=== PATIENT | female | born 1945 | race Caucasian/White ===

== ENCOUNTER 2022-07-01 15:26 | Emergency (ER) | payer MEDICARE, SELFPAY ==
--- NOTE | ~2022-07-01 | CT_ITS ---
EXAMINATION: CT ABDOMEN AND PELVIS WITHOUT CONTRAST CLINICAL INFORMATION: Left flank pain COMPARISON: None TECHNIQUE: Multidetector volumetric imaging was performed from the superior aspect of the liver through the pubic symphysis. Sagittal and coronal reformatted images were obtained on the technologist's workstation. This CT examination was performed using dose optimization techniques as appropriate, variously including the following: *Automated exposure control *Adjustment of mA and/or kV according to patient size (this includes techniques or standardized protocols for targeted exams where dose is matched to indication/reason for exam; i.e. extremities or head) *Use of iterative reconstruction technique DLP: 523 mGy-cm FINDINGS: LUNG BASES: The visualized lung bases are unremarkable. LIVER, GALLBLADDER, AND BILIARY TREE: No focal liver lesion. No biliary dilatation. Gallstone present. No obvious gallbladder wall thickening, or obvious pericholecystic inflammatory changes. PANCREAS: Unremarkable. No acute inflammatory changes. SPLEEN: Unremarkable. ADRENAL GLANDS: Unremarkable. KIDNEYS AND URETERS: Punctate calcification in the upper pole left kidney, could represent calyceal calculus versus vascular calcification. No renal calculi otherwise seen. No hydronephrosis. No radiodense ureteral calculi identified. There is mild bilateral perinephric stranding. BLADDER: Unremarkable. GASTROINTESTINAL TRACT: The stomach is nondistended limiting evaluation. No dilated small bowel loops. There is prominent sigmoid diverticulosis. There is wall thickening of the sigmoid colon without adjacent inflammatory changes. These findings could be related to lack of distention versus mild colitis/diverticulitis in the appropriate clinical circumstance. There are diverticula otherwise in the large colon. Small to moderate volume stool in the colon. Normal appendix. No significant free fluid is seen. ABDOMINAL WALL: No significant hernia is appreciated. LYMPH NODES: No lymphadenopathy seen in the abdomen or pelvis. VASCULAR: Extensive atherosclerotic vascular calcification. No aneurysmal dilatation of the aorta. PELVIC VISCERA: Within normal limits for CT. OSSEOUS STRUCTURES: Multilevel degenerative changes in the spine. No suspicious osseous abnormality. CT/CT abdomen pelvis wo IV con IMPRESSION: 1. No evidence of hydronephrosis. No radiopaque ureteral calculi. Punctate vascular calcification versus calyceal calcification in the upper pole left kidney. Mild bilateral perinephric stranding, nonspecific. Correlate with urinalysis. 2. Prominent sigmoid colon diverticulosis. There is wall thickening of the sigmoid colon, which could be related to lack of distention or could represent mild colitis/diverticulitis in the appropriate clinical circumstance. Please clinically correlate. 3. Cholelithiasis. No CT findings suggest obvious cholecystitis. Further evaluation ultrasound as clinically warranted. Fleischner guidelines were followed.
[2022-07-01 15:43] VITALS: BP 170/90; PULSE 82; O2SAT 96
[2022-07-01 15:52] VITALS: BP 185/81; PULSE 71; RESP 18; TEMP 36.9; O2SAT 96; BMI 30.2
--- NOTE | 2022-07-01 16:03 | ED.GENADULT ---
HPI - General Adult General Chief complaint: General Medical Stated complaint: LT FLANK PAIN X 4 DAYS Time Seen by Provider: 07/01/22 15:52 Source: patient History of Present Illness HPI narrative: patient complaining of severe pain left flank starting 4 days ago. No causative factors that she knows of. No slips falls or change in activity. No prior history of flank pain before. No definitive radiation to the abdomen. It is worse with movement. It is sharp. It is 7/10. No nausea vomiting diarrhea or constipation No urinary symptoms such is dysuria hematuria hesitancy or frequency. Family history of kidney disease and renal cancer but no history of kidney stones. No fevers chills No change to cough. She states she has chronic cough Related Data Previous Rx's Medication Instructions Recorded cyclobenzaprine 10 mg tablet 10 mg PO TID #20 tabs 07/01/22 ibuprofen 600 mg tablet 600 mg PO TID PRN pain #30 tabs 07/01/22 Allergies Allergy/AdvReac Type Severity Reaction Status Date / Time No Known Allergies Allergy Verified 07/01/22 16:01 Review of Systems Constitutional: Comments: no fevers or chills Cardiovascular: Comments: no chest pain Respiratory: Comments: no change to cough. She has a chronic cough. Gastrointestinal: Comments: No anterior abdominal pain. Positive left flank pain Genitourinary: Comments: no dysuria hesitancy or frequency. No hematuria Musculoskeletal: Comments: no midline back pain. No leg pain, calf tenderness, pedal edema Integumentary/Breasts: Comments: no rash Neurologic: Comments: no weakness numbness or paresthesias [facility] Past Medical History Medical History (Updated 07/01/22 @ 19:38 by Jung Ayon MD) Bursitis COPD (chronic obstructive pulmonary disease) Hypertension Surgical History Hx of tonsillectomy Social History Social History Alcohol intake: never Patient Tobacco Use Status: Current everyday Tobacco user Use of substances other than those prescribed or required for medical reasons: No Advance Directives: No Advance Directives Information Provided: No Physical Exam ED Vital Signs: Vital Signs - 24 hr 07/01/22 15:52 07/01/22 17:58 Temperature 98.5 F Pulse Rate 71 61 Respiratory Rate 18 20 Blood Pressure 185/81 H 191/64 H Pulse Oximetry 96 96 Oxygen Delivery Method Room Air Room Air BMI result Body Mass Index 30.2 Const Other: awake and alert in no acute distress Chest Other: tenderness to palpation left lateral lower ribs. No crepitus deformity or other abnormality noted Resp Other: bilateral rhonchi with fair air entry. No respiratory distress Cardio Other: regular rate and rhythm without murmurs rubs or gallops GI Other: soft nontender nondistended. Flank pain as mentioned Skin Other: warm pink dry. No rash in distribution of pain Neuro Other: nonfocal neuro exam Course Course Course Narrative: flank pain Musculoskeletal etiology Kidney stone Pyelonephritis Pneumonia less likely IV fluids IV Toradol Labs and a CT scan CT scan shows no evidence of hydronephrosis or actively passing kidney stone. Re-evaluation shows patient is still having discomfort despite medication. Re-examination of abdomen show she is nontender throughout her abdomen including left lower and right upper quadrant. CT scan did show some thickening of the sigmoid colon but she has no discomfort in this area. It also showed gallstones which appear to be asymptomatic. She is stable for discharge home with her current symptoms most likely being caused by musculoskeletal inflammation Medical Decision Making Lab Data Result diagrams: 07/01/22 16:11 07/01/22 17:11 Labs: Lab Results 07/01/22 07/01/22 Range/Units 16:11 17:11 WBC 7.5 (4.8-10.8) X10*3/uL RBC 4.73 (4.20-5.50) X10*6/uL Hgb 14.1 (12.0-16.0) g/dl Hct 39.6 (37.0-47.0) % MCV 83.7 (80.0-98.0) fL MCH 29.8 (27.0-33.0) pg MCHC 35.6 H (31.0-35.0) g/dl RDW 13.6 (11.0-16.0) % Plt Count 257 (160-400) X10*3/uL MPV 9.8 (9.4-12.3) fL Immature Gran % (Auto) 0.3 (0.0-0.4) % Neut % (Auto) 48.0 (45-73) % Lymph % (Auto) 42.0 H (20-40) % [place] % (Auto) 7.7 (2-11) % Eos % (Auto) 1.2 (0-4) % Baso % (Auto) 0.8 (0-2) % Lymph # (Auto) 3.1 (1.2-4.9) X10*3/uL [place] # (Auto) 0.6 (0.1-1.2) X10*3/uL Eos # (Auto) 0.1 (0.0-0.4) X10*3/uL Baso # (Auto) 0.1 (0.0-0.2) X10*3/uL Abs Immat Gran (auto) 0.02 (0.00-0.03) X10*3/uL Absolute Neuts (auto) 3.6 (2.0-8.3) x10*3/uL Absolute Nucleated RBC 0.000 (0.0-0.012) X10*3/uL Nucleated RBC % (auto) 0.0 (0.0-0.2) /100WBC Sodium 131 L (135-145) mmol/L Potassium 3.6 (3.3-5.1) mmol/L Chloride 93 L (96-108) mmol/L Carbon Dioxide 28 (22-29) mmol/L Anion Gap 14 (12-20) BUN 8 L (9-16) mg/dL Creatinine 0.79 (0.5-1.4) mg/dL Estim Creat Clear Calc 55.2 Estimated GFR > 60 Random Glucose 83 (60-115) mg/dL Calcium 9.1 (8.4-10.2) mg/dL Total Bilirubin 0.5 (0.0-1.0) mg/dL AST 20 (5-31) U/L ALT 16 (0-31) U/L Alkaline Phosphatase 65 (39-117) U/L Total Protein 6.1 L (6.5-8.0) g/dL Albumin 3.8 (3.5-5.0) g/dL Discharge Plan Discharge Clinical Impression: Back pain of thoracolumbar region Patient Disposition: Home, Self-Care Instructions: Thoracic Pain (ED) Prescriptions: New cyclobenzaprine 10 mg tablet 10 mg PO TID Qty: 20 0RF ibuprofen 600 mg tablet 600 mg PO TID PRN (Reason: pain) Qty: 30 0RF
[2022-07-01] MEDS: Ketorolac Tromethamine 15 MG/ML VIAL IVPUSH (16:12)
[2022-07-01] MEDS: 0.9 % Sodium Chloride 500 ML IV (16:12)
[2022-07-01 16:17] LABS: MANUAL DIFF FLAG NO
[2022-07-01 16:22] LABS: Basophils Absolute Auto 0.1 X10*3/uL (0.0-0.2); Basophils Percent Auto 0.8 % (0-2); Eosinophils Absolute Auto 0.1 X10*3/uL (0.0-0.4); Eosinophils Percent Auto 1.2 % (0-4); Hematocrit 39.6 % (37.0-47.0); Hemoglobin 14.1 g/dl (12.0-16.0); Imm Gran Abs Auto 0.02 X10*3/uL (0.00-0.03); Imm Gran Pct Auto 0.3 % (0.0-0.4); Lymphocytes Absolute Auto 3.1 X10*3/uL (1.2-4.9); Mean Corpuscular HGB Conc 35.6 g/dl (31.0-35.0); Mean Corpuscular Hemoglobin 29.8 pg (27.0-33.0); Mean Corpuscular Volume 83.7 fL (80.0-98.0); Mean Platelet Volume 9.8 fL (9.4-12.3); Monocytes Absolute Auto 0.6 X10*3/uL (0.1-1.2); Monocytes Percent Auto 7.7 % (2-11); Neutrophils Absolute Auto 3.6 x10*3/uL (2.0-8.3); Platelet Count 257 X10*3/uL (160-400); Red Blood Count 4.73 X10*6/uL (4.20-5.50); Red Cell Distribution Width 13.6 % (11.0-16.0); White Blood Count 7.5 X10*3/uL (4.8-10.8)
[2022-07-01 17:42] LABS: Alanine Aminotransferase 16 U/L (0-31); Albumin Level 3.8 g/dL (3.5-5.0); Alkaline Phosphatase 65 U/L (39-117); Anion Gap 14 (12-20); Aspartate Amino Transferase 20 U/L (5-31); Bilirubin Total 0.5 mg/dL (0.0-1.0); Blood Urea Nitrogen 8 mg/dL (9-16); Calcium 9.1 mg/dL (8.4-10.2); Carbon Dioxide 28 mmol/L (22-29); Chloride 93 mmol/L (96-108); Creatinine Clr Calc Pharmacy 55.2; Estimated Glomerular Filt Rate > 60; Glucose Random 83 mg/dL (60-115); Potassium 3.6 mmol/L (3.3-5.1); Sodium 131 mmol/L (135-145); Total Protein 6.1 g/dL (6.5-8.0)
[2022-07-01 17:58] VITALS: BP 191/64; PULSE 61; RESP 20; O2SAT 96
[2022-07-01] MEDS: oxyCODONE HCl Immed Release 5 MG TABLET PO (17:58)
--- NOTE | 2022-07-01 19:54 | PC.NURSE ---
assumed care of pt, pt reports reduction in pain, attempted to call taxi for pt with no success, pt ready for discharge.
== END 2022-07-01 20:09 | disposition home or self-care (01) ==
PROVIDERS: Emergency Provider Emergency Medicine; PCP Internal Medicine
DX: M54.6 Pain in thoracic spine (principal); R10.9 Unspecified abdominal pain; I10 Essential (primary) hypertension; J44.9 Chronic obstructive pulmonary disease, unspecified; F17.200 Nicotine dependence, unspecified, uncomplicated
CPT/HCPCS: 36415; 74176; 80053; 85025; 96374; 99284; J1885